=== PATIENT | female | born 1965 | race Caucasian/White ===

== ENCOUNTER → 2021-06-06 | Outpatient (CLI) | payer MEDICARE, OTHER ==
--- NOTE | 2021-06-06 17:08 | RAD ---
Left foot 3 views: Reason for examination: Had surgery in September. Fell in November. Still having pain. No acute fracture or dislocation is seen. Bone density is normal. No abnormal periosteal reaction is seen. Joint spaces are obtained. There is some calcaneal spurring present. IMPRESSION: No acute abnormality evident at the left foot. Electronically signed by: Marely Wilson MD (06/06/2021 5:06 PM) [id number]
== END ==
LOC: RAD 10:31
PROVIDERS: ATTEND Orthopaedic Surgery
DX: M77.32 Calcaneal spur, left foot (principal); M79.672 Pain in left foot
CPT/HCPCS: 73630

== ENCOUNTER 2021-06-25 08:29 | Emergency (ER) | payer MEDICARE, OTHER ==
[~2021-06-25] VITALS: Ht 165.1 cm; Wt 110.4 kg
--- NOTE | 2021-06-25 08:41 | PHYS DOC ---
Past History Past Medical History: Asthma, CAD, COPD Adult General [facility] HPI Patient is a 55-year-old female presenting for cough. This is an acute on chronic issue. Reports she has numerous comorbid conditions most pertinent for asthma and COPD for which she has been at baseline health. Reports she recently got her booster for COVID-19 and several days after started developing generalized upper respiratory symptoms. Nonetheless, she developed productive cough which is not typical for her and worsening shortness of breath which concerned her for COPD exacerbation prompting her to come in for evaluation. Associated symptoms include right-sided ear ache. No fever, syncope, ligh theadedness or dizziness, chest pain, ripping or tearing sensation in torso, abdominal pain, dysuria, changes in motor or sensory or neuro function Review of Systems Review of Systems Fourteen body systems of review of systems have been reviewed. See HPI for pertinent positives and negative responses, other escalera all other systems are negative, non-pertinent or non-contributory Physical Exam Physical Exam General: Appears well, non toxic, and comfortable Skin: Warm, dry. Normal for ethnicity. HEENT: Atraumatic. PERRLA. Rhinorrhea and congestion. Nasal turbinates boggy b/l. Moist mucous membranes. Uvula midline. Maintaining secretions. No phonation changes. Right ear with infectious findings such as bulging tympanic membrane with loss of cone of light and injection and erythema Neck: Trachea midline. Normal ROM. No stridor. Respiratory: Normal WOB. CTAB w/o w/r/r. No tachypnea. Cardiovascular: Regular rate and rhythm. Normal peripheral perfusion. Abdomen: Soft. Non tender. No distension. Back: Normal ROM. Musculoskeletal: No swelling or deformity. Neuro: Alert and oriented x 4. MAEE. Lymph: No cervical LAD. Psych: Normal affect and mood. Current Patient Data Vital Signs Vital Signs Date Time Temp Pulse Resp B/P (MAP) Pulse Ox O2 Delivery O2 Flow Rate FiO2 06/25/21 08:42 98.8 95 18 135/58 (83) 95 Room Air Vital Signs Date Time Temp Pulse Resp B/P (MAP) Pulse Ox O2 Delivery O2 Flow Rate FiO2 06/25/21 08:42 98.8 95 18 135/58 (83) 95 Room Air EKG EKG EKG ordered and interpreted by myself at 0842 hrs. as sinus rhythm at 90 bpm, unremarkable intervals, no axis deviation, no obvious ischemic findings, no STEMI Radiology/Procedures Radiology/Procedures PROCEDURE: XR CHEST 1V.06/25/2021 9:15 AM REASON FOR STUDY: Reason: worsening shortness of breath and cough in setting of known COPD / Spl. Instructions: / History: . COMPARISON: None. FINDINGS: No infiltrate or effusion is seen. Heart size and pulmonary vascularity appear normal. IMPRESSION: No apparent acute abnormality. Electronically signed by: Paulino Hinkle Jr., MD (06/25/2021 9:15 AM) [id number] Heart Score C/O Chest Pain: No HEART Score for Chest Pain: HEART Score for Chest Pain Response (Comments) Value History Slighlty/Non-Suspicious 0 ECG Normal 0 Age >45 - < 65 1 Risk Factors 1 or 2 Risk Factors 1 Total 2 Risk Factors: Risk Factors: DM, Current or recent (<one month) smoker, HTN, HLP, family history of CAD, obesity. Risk Scores: Risk Factors: DM, Current or recent (<one month) smoker, HTN, HLP, family history of CAD, obesity. Course & Med Decision Making Course & Med Decision Making ABCs unremarkable HPI physical exam and comprehensive ER work-up obtained nonconcerning for any emergent or surgical issues Disclosed most likely diagnoses of COPD exacerbation and right otitis media in setting of upper respiratory symptoms. Joint decision made to treat his typical COPD exacerbation which said medications will cover upper respiratory pathology Joint decision to defer Covid testing and further ER diagnostic studies in favor for close PCP follow-up for continued care. Strict return precautions discussed and understood prior to ER departure Dragkatty Disclaimer Dragkatty Disclaimer This electronic medical record was generated, in whole or in part, using a voice recognition dictation system. Departure Departure: Impression: Primary Impression: COPD exacerbation Additional Impression: Right otitis media Disposition: HOME / SELF CARE / HOMELESS Condition: STABLE Referrals: PCP,NO (PCP) Patient Instructions: Chronic Obstructive Pulmonary Disease Exacerbation Scripts Azithromycin (AZITHROMYCIN TABLET) 250 Mg Tablet 250 MG PO DAILY for ANTI-BIOTIC for 4 Days, #4 TAB 0 Refills Prov: MIGEL CEJA DO 06/25/21 Prednisone (PREDNISONE) 20 Mg Tablet 40 MG PO DAILY for bronchitis for 4 Days, #8 TAB Prov: MIGEL CEJA DO 06/25/21 Problem Qualifiers MIGEL CEJA DO Jun 25, 2021 08:40
[2021-06-25 09:15] VITALS: BP 125/74
--- NOTE | 2021-06-25 09:17 | RAD ---
PROCEDURE: XR CHEST 1V.06/25/2021 9:15 AM REASON FOR STUDY: Reason: worsening shortness of breath and cough in setting of known COPD / Spl. Ins tructions: / History: . COMPARISON: None. FINDINGS: No infiltrate or effusion is seen. Heart size and pulmonary vascularity appear normal. IMPRESSION: No apparent acute abnormality. Electronically signed by: Paulino Hinkle Jr., MD (06/25/2021 9:15 AM) [id number]
[2021-06-25] MEDS ORDERED: AZIT250T6 PO (09:22)
[2021-06-25] MEDS ORDERED: PRED20TA PO (09:22)
[2021-06-25] MEDS ORDERED: AZITHROMYCIN 250 MG TABLET. PO ONE (09:30)
[2021-06-25] MEDS ORDERED: predniSONE 10 MG TABLET. PO ONE (09:30)
--- NOTE | 2021-06-25 11:45 | EKG ---
[address] [address] Test Date: 2021-06-25 Test Time: 08:39:30 Pat Name: YANNICK DAVIS Department: Room: Gender: F Roving Department Supervisor: : [id number] Requested By: MIGEL CEJA Order Number: [id number] Reading MD: Reynold Bolivar Measurements Intervals [place] Rate: 90 P: 51 AR: 124 QRS: 53 QRSD: 84 T: 42 QT: 348 QTc: 430 Interpretive Statements SINUS RHYTHM NORMAL ECG RI6.02 No previous ECG available for comparison Electronically Signed On 06-26-2021 19:36:53 PAINT DIPPER by Reynold Bolivar
== END 2021-06-25 09:46 | disposition home or self-care (01) ==
LOC: ER 08:29
DX: J44.1 Chronic obstructive pulmonary disease with (acute) exacerbation (principal); H66.91 Otitis media, unspecified, right ear; I25.10 Atherosclerotic heart disease of native coronary artery without angina pectoris
CPT/HCPCS: 71045; 93005; 99283; J7512

== ENCOUNTER → 2021-10-10 | Outpatient (CLI) | payer MEDICARE, OTHER ==
[~2021-10-10] MED LIST: AZIT250T6 PO; PRED20TA PO
[2021-10-10 09:57] LABS: ALBUMIN 3.6 g/dL (3.4-5.0); DIRECT BILIRUBIN 0.1 mg/dL (0.0-0.2); TOTAL BILIRUBIN 0.4 mg/dL (0.2-1.0); TOTAL PROTEIN 7.5 g/dL (6.4-8.2)
[2021-10-10 20:38] LABS: CHOLESTEROL/HDL RATIO 2.4
== END ==
LOC: LAB 08:55
PROVIDERS: ATTEND Internal Medicine Cardiovascular Disease
DX: I25.10 Atherosclerotic heart disease of native coronary artery without angina pectoris (principal)
CPT/HCPCS: 36415; 80061; 80076